=== PATIENT | female | born 1995 | race Caucasian/White ===

== ENCOUNTER 2021-01-25 20:00 | Inpatient (IN) | payer OTHER ==
[~2021-01-25] VITALS: Ht 160 cm; Wt 73.0 kg
[2021-01-26] MEDS ORDERED: PRENATAL CAPLE1 EAC1 PO (00:18)
== END 2021-02-02 14:16 | DRG 832 ==
LOC: OBS/DEL 20:00 → LDR 01-26 08:47 → OB/GYN 01-28 14:19
PROVIDERS: ADMIT Specialist; ATTEND Specialist
PROC: BY4FZZZ Ultrasonography of Third Trimester, Single Fetus (ICD-10-PCS; principal; 2021-01-26)
DX: O60.03 Preterm labor without delivery, third trimester (principal); O26.873 Cervical shortening, third trimester; Z3A.29 29 weeks gestation of pregnancy; Z20.822 Contact with and (suspected) exposure to COVID-19

== ENCOUNTER 2021-02-18 02:55 | Inpatient (IN) | payer OTHER ==
[~2021-02-18] VITALS: Ht 160 cm; Wt 73.0 kg
[~2021-02-18 02:55] MED LIST: PRENATAL CAPLE1 EAC1 PO
== END 2021-02-19 15:00 | disposition home or self-care (01) | DRG 832 ==
LOC: OBS/DEL 02:55 → LDR 13:56
PROVIDERS: ADMIT Specialist; ATTEND Specialist
PROC: 4A1HXFZ Monitoring of Products of Conception, Cardiac Rhythm, External Approach (ICD-10-PCS; principal; 2021-02-18)
DX: O47.03 False labor before 37 completed weeks of gestation, third trimester (principal); O26.873 Cervical shortening, third trimester; Z3A.32 32 weeks gestation of pregnancy; Z20.822 Contact with and (suspected) exposure to COVID-19

== ENCOUNTER 2021-03-21 16:28 | Inpatient (IN) | payer OTHER ==
[~2021-03-21] VITALS: Ht 160 cm; Wt 78.5 kg
[2021-03-21] MEDS ORDERED: INDERAL XL80 MG PO (18:02)
== END 2021-03-23 14:31 | disposition home or self-care (01) | DRG 807 ==
LOC: OB/GYN 16:28 → LDR 16:28 → OB/GYN 03-22 00:49
PROVIDERS: ADMIT Specialist; ATTEND Specialist
PROC: 10E0XZZ Delivery of Products of Conception, External Approach (ICD-10-PCS; principal; 2021-03-21)
PROC: 0W8NXZZ Division of Female Perineum, External Approach (ICD-10-PCS; 2021-03-21)
PROC: 10907ZC Drainage of Amniotic Fluid, Therapeutic from Products of Conception, Via Natural or Artificial Opening (ICD-10-PCS; 2021-03-21)
PROC: 4A1HXFZ Monitoring of Products of Conception, Cardiac Rhythm, External Approach (ICD-10-PCS; 2021-03-21)
DX: O24.429 Gestational diabetes mellitus in childbirth, unspecified control (principal); Z37.0 Single live birth; Z3A.37 37 weeks gestation of pregnancy